=== PATIENT | female | born 1960 | race Caucasian/White ===

== ENCOUNTER 2019-12-06 13:41 | Inpatient (IN) | payer BC, OTHER ==
[~2019-12-06] VITALS: Ht 165.1 cm; Wt 88.0 kg
[2019-12-06] MEDS ORDERED: vancomycin/NS 1 GM ADD-VANTAGE 250 ML IV ONE (13:50)
[2019-12-06 14:28] LABS: BASOPHILS % (AUTO) 0.1 % (0-1); EOSINOPHILS % (AUTO) 0 % (0-6); HEMATOCRIT 29.3 % (35.0-45.0); HEMOGLOBIN 9.8 g/dl (12.0-16.0); LYMPHOCYTES # (AUTO) 0.5 X10'3 (1.1-4.8); LYMPHOCYTES % (AUTO) 3.7 % (21-51); MEAN CORPUSCULAR HEMOGLOBIN 29.2 PG (27.0-31.0); MEAN CORPUSCULAR HGB CONC 33.4 g/dL (33.0-36.5); MEAN CORPUSCULAR VOLUME 87.4 FL (78-98); MEAN PLATELET VOLUME 8.2 FL (7.4-10.4); MONOCYTES # (AUTO) 0.7 X10'3 (0-0.9); MONOCYTES % (AUTO) 5.2 % (2-12); NEUTROPHILS # (AUTO) 11.7 X10'3 (1.8-7.7); PARTIAL THROMBOPLASTIN TIME 31 SECONDS (22-32); PLATELET COUNT 125 X10'3 (140-440); RED BLOOD COUNT 3.36 X10'6 (4.20-5.60); RED CELL DISTRIBUTION WIDTH 14.6 % (11.5-14.5); WHITE BLOOD COUNT 12.8 X10'3 (4.5-11.0)
[2019-12-06 14:31] LABS: ALANINE AMINOTRANSFERASE 39 U/L (12-78); ALBUMIN 2.2 G/DL (3.4-5.0); ALBUMIN/GLOBULIN RATIO 0.5 (1.1-1.5); ALKALINE PHOSPHATASE 386 IU/L (46-116); ANION GAP 10 (8-16); ASPARTATE AMINO TRANSFERASE 42 U/L (10-37); BLOOD UREA NITROGEN 18 MG/DL (7-18); BUN/CREATININE RATIO 14.1 (6.6-38.0); CALCIUM 7.8 MG/DL (8.5-10.1); CHLORIDE 100 MMOL/L (99-107); CREATININE 1.28 MG/DL (0.40-0.90); GLUCOSE 138 MG/DL (70-104); MAGNESIUM 1.9 MG/DL (1.5-2.4); POTASSIUM 4.4 MMOL/L (3.5-5.1); SODIUM 130 MMOL/L (135-145); TOTAL CARBON DIOXIDE 19.8 MMOL/L (24-32); TOTAL PROTEIN 6.5 G/DL (6.4-8.2); eGFR 43 ML/MIN
[2019-12-06] MEDS ORDERED: ondansetron/PF 4mg/2ml inj IV ONE (14:45)
[2019-12-06] MEDS ORDERED: morphine 2 MG/ML inj. syringe IV ONE (14:45)
[2019-12-06] MEDS ORDERED: potassium Cl 20 mEq SR tablet PO PRN ×2 (14:50)
[2019-12-06] MEDS ORDERED: acetaminophen 325mg tablet PO PRN ×2 (14:50)
[2019-12-06] MEDS ORDERED: docusate sod 100mg capsule PO PRN (14:50)
[2019-12-06] MEDS ORDERED: magnesium 4gm in 100ml NS 100 ML IV PRN (14:50)
[2019-12-06] MEDS ORDERED: potassium CL 10mEq/100ml bag 100 ML IV PRN ×2 (14:50)
[2019-12-06] MEDS ORDERED: metoclopramide 5 mg/ml inj IV PRN (14:50)
[2019-12-06] MEDS ORDERED: magnesium Cl slow-release 64mg tablet PO PRN (14:50)
[2019-12-06] MEDS ORDERED: magnesium 2GM in 50ml NS 50 ML IV PRN (14:50)
[2019-12-06 15:03] LABS: CLARITY,URINE SLIGHTLY CLOUDY (Clear); COLOR,URINE AMBER (Yellow); GLUCOSE, URINE NEGATIVE (Neg); KETONES,URINE NEGATIVE (Neg); LEUKOCYTE ESTERASE ,URINE TRACE (Neg); NITRITES, URINE NEGATIVE (Neg); OCCULT BLOOD,URINE LARGE (Neg); PROTEIN,URINE NEGATIVE (Neg)
[2019-12-06 15:04] LABS: UA COLLECTION TYPE FOLEY CATH
[2019-12-06] MEDS ORDERED: LIDOcaine 1% W/epiNEPHrine 1:100,000 20ml vial SQ ONE (15:10)
[2019-12-06 15:21] LABS: SQUAMOUS EPITHELIAL CELL,UR MODERATE /LPF (FEW)
[2019-12-06 15:28] LABS: TRANSITIONAL EPI CELLS,URINE FEW /HPF
[2019-12-06 15:33] LABS: BACTERIA,URINE FEW /HPF (Neg); CAL OXALATE CRYSTALS FEW /HPF (NEGATIVE); RENAL CELLS, URINE FEW /HPF
[2019-12-06] MEDS ORDERED: albumin (human) 25% 100 ML IV solution IV ONE (15:55)
[2019-12-06 16:32] LABS: ALBUMIN,BODY FLUID < 0.6 G/DL; LDH,BODY FLUID 59 U/L
[2019-12-06 16:45] LABS: TOTAL PROTEIN,BODY FLUID < 2.0 G/DL
[2019-12-06 17:11] LABS: BF RBC COUNT 825 /CU MM; BF WBC COUNT 2175 /CU MM (0-1000); BFAPPEAR HAZY; BFCOLOR YELLOW; BFVOLUME 19 ML
[2019-12-06 17:22] LABS: LYMPHOCYTES,BODY FLUID 5 %; MONOCYTES,BODY FLUID 5 %; NEUTROPHILS,BODY FLUID 90 %
--- NOTE | 2019-12-06 17:37 | NUR ---
visitor documentation obtained by NS
[2019-12-06 18:00] VITALS: BP 94/54
[2019-12-06] MEDS ORDERED: FERR-39 PO (18:57)
[2019-12-06] MEDS ORDERED: SPIR100T5 PO (18:57)
[2019-12-06] MEDS ORDERED: URSO300C2 PO (18:57)
[2019-12-06] MEDS ORDERED: BUME1TAB8 PO (18:57)
[2019-12-06] MEDS ORDERED: metroNIDAZOLE-Flagyl 500mg/NS 100 ML IV SCH (20:00)
[2019-12-06] MEDS: K and/or MAG REPLACEMENT MC SCH (20:00)
[2019-12-06] MEDS: ciprofloxacin lact 400MG/200ML 200 ML IV SCH (21:01)
[2019-12-06] MEDS: Ursodiol 300mg capsule PO SCH (21:01)
--- NOTE | 2019-12-06 21:55 | NUR ---
Page sent " [address]B [facility]. admit 12/05 [facility]. Pt is requesting a diet. Josie RN Surg [id number]"
[2019-12-07] VITALS: BP 101/54
[2019-12-07 04:54] LABS: BASOPHILS % (AUTO) 0.2 % (0-1); EOSINOPHILS % (AUTO) 0.5 % (0-6); HEMATOCRIT 25.6 % (35.0-45.0); HEMOGLOBIN 8.6 g/dl (12.0-16.0); LYMPHOCYTES # (AUTO) 0.5 X10'3 (1.1-4.8); LYMPHOCYTES % (AUTO) 4.8 % (21-51); MEAN CORPUSCULAR HEMOGLOBIN 29.1 PG (27.0-31.0); MEAN CORPUSCULAR HGB CONC 33.5 g/dL (33.0-36.5); MEAN CORPUSCULAR VOLUME 86.8 FL (78-98); MEAN PLATELET VOLUME 8.3 FL (7.4-10.4); MONOCYTES # (AUTO) 0.8 X10'3 (0-0.9); MONOCYTES % (AUTO) 8.4 % (2-12); NEUTROPHILS # (AUTO) 8.6 X10'3 (1.8-7.7); NEUTROPHILS % (AUTO) 86.1 % (42-75); PLATELET COUNT 121 X10'3 (140-440); RED BLOOD COUNT 2.95 X10'6 (4.20-5.60); RED CELL DISTRIBUTION WIDTH 14.7 % (11.5-14.5)
[2019-12-07 05:08] LABS: ALANINE AMINOTRANSFERASE 33 U/L (12-78); ALBUMIN 2.2 G/DL (3.4-5.0); ALBUMIN/GLOBULIN RATIO 0.6 (1.1-1.5); ALKALINE PHOSPHATASE 296 IU/L (46-116); ANION GAP 9 (8-16); ASPARTATE AMINO TRANSFERASE 33 U/L (10-37); BLOOD UREA NITROGEN 23 MG/DL (7-18); BUN/CREATININE RATIO 20.4 (6.6-38.0); CALCIUM 7.8 MG/DL (8.5-10.1); CHLORIDE 102 MMOL/L (99-107); CREATININE 1.13 MG/DL (0.40-0.90); GLUCOSE 86 MG/DL (70-104); MAGNESIUM 2.1 MG/DL (1.5-2.4); POTASSIUM 4.5 MMOL/L (3.5-5.1); SODIUM 130 MMOL/L (135-145); TOTAL CARBON DIOXIDE 19.2 MMOL/L (24-32); TOTAL PROTEIN 5.7 G/DL (6.4-8.2); eGFR 49 ML/MIN
--- NOTE | 2019-12-07 06:45 | NUR ---
Problems reprioritized. Patient report given, questions answered & plan of care reviewed with Ibeth LECHUGA.
--- NOTE | 2019-12-07 06:52 | NUR ---
Patient in room [facility] 346 B. I have received report from ALEXANDREA PATEL and had the opportunity to ask questions and assume patient care.
[2019-12-07 07:00] VITALS: BP 92/57
[2019-12-07] MEDS: K and/or MAG REPLACEMENT MC SCH ×2 (08:00→20:00)
[2019-12-07] MEDS: bumetanide 1mg tablet PO SCH ×2 (08:00→20:00)
[2019-12-07] MEDS: Ursodiol 300mg capsule PO SCH ×3 (08:45→20:48)
[2019-12-07] MEDS: spironolactone 25 MG tablet PO SCH (08:45)
[2019-12-07] MEDS: ciprofloxacin lact 400MG/200ML 200 ML IV SCH (08:50)
[2019-12-07] MEDS ORDERED: CefTRIAXone 2gm/D5W 50ml 50 ML IV SCH (10:00)
[2019-12-07 11:00] VITALS: BP 100/59
[2019-12-07] MEDS: albumin (human) 25% 100 ML IV solution IV SCH (12:16)
--- NOTE | 2019-12-07 18:15 | NUR ---
Patient in room [facility] 346. I have received report from Ibeth LECHUGA and had the opportunity to ask questions and assume patient care.
--- NOTE | 2019-12-07 19:00 | NUR ---
Problems reprioritized. Patient report given, questions answered & plan of care reviewed with PRUDENCEALEXANDREA. Addendum: 12/07/19 at 1903 by Ibeth Pringle RN WITH HARDY NEUMANN
[2019-12-07] MEDS: morphine 2 MG/ML inj. syringe IV PRN (19:09)
[2019-12-07 20:00] VITALS: BP 107/48
[2019-12-07] MEDS: CefTRIAXone 2gm/D5W 50ml 50 ML IV SCH (20:38)
[2019-12-07] MEDS: lactobacillus rhamnosus 10,000 MMU CELLS/CAPSULE PO SCH (20:39)
[2019-12-08] VITALS: BP 90/47
[2019-12-08 05:25] LABS: BASOPHILS % (AUTO) 0.3 % (0-1); EOSINOPHILS % (AUTO) 0.3 % (0-6); HEMATOCRIT 25.9 % (35.0-45.0); HEMOGLOBIN 8.8 g/dl (12.0-16.0); LYMPHOCYTES # (AUTO) 0.5 X10'3 (1.1-4.8); LYMPHOCYTES % (AUTO) 5.1 % (21-51); MEAN CORPUSCULAR HEMOGLOBIN 29.2 PG (27.0-31.0); MEAN CORPUSCULAR HGB CONC 33.9 g/dL (33.0-36.5); MEAN CORPUSCULAR VOLUME 86.2 FL (78-98); MEAN PLATELET VOLUME 8.2 FL (7.4-10.4); MONOCYTES # (AUTO) 0.8 X10'3 (0-0.9); MONOCYTES % (AUTO) 8.9 % (2-12); NEUTROPHILS # (AUTO) 7.8 X10'3 (1.8-7.7); NEUTROPHILS % (AUTO) 85.4 % (42-75); PLATELET COUNT 132 X10'3 (140-440); RED BLOOD COUNT 3.01 X10'6 (4.20-5.60); RED CELL DISTRIBUTION WIDTH 14.8 % (11.5-14.5); WHITE BLOOD COUNT 9.2 X10'3 (4.5-11.0)
[2019-12-08 05:43] LABS: ALANINE AMINOTRANSFERASE 29 U/L (12-78); ALBUMIN 2.4 G/DL (3.4-5.0); ALBUMIN/GLOBULIN RATIO 0.7 (1.1-1.5); ALKALINE PHOSPHATASE 270 IU/L (46-116); ANION GAP 10 (8-16); ASPARTATE AMINO TRANSFERASE 30 U/L (10-37); BILIRUBIN,TOTAL 1.9 MG/DL (0.1-1.0); BLOOD UREA NITROGEN 28 MG/DL (7-18); BUN/CREATININE RATIO 21.7 (6.6-38.0); CALCIUM 7.9 MG/DL (8.5-10.1); CHLORIDE 98 MMOL/L (99-107); CREATININE 1.29 MG/DL (0.40-0.90); GLUCOSE 107 MG/DL (70-104); MAGNESIUM 2.1 MG/DL (1.5-2.4); POTASSIUM 5.2 MMOL/L (3.5-5.1); SODIUM 128 MMOL/L (135-145); TOTAL CARBON DIOXIDE 20.3 MMOL/L (24-32); TOTAL PROTEIN 5.8 G/DL (6.4-8.2); eGFR 42 ML/MIN
--- NOTE | 2019-12-08 06:21 | NUR ---
Problems reprioritized. Patient report given, questions answered & plan of care reviewed with Deniz LECHUGA.
--- NOTE | 2019-12-08 06:40 | NUR ---
Patient in room [facility] 346. I have received report from ALEXANDREA Piña and had the opportunity to ask questions and assume patient care. Patient transferred to room 344B.
[2019-12-08 07:00] VITALS: BP 105/71
[2019-12-08] MEDS: bumetanide 1mg tablet PO SCH ×3 (07:16→20:00)
[2019-12-08] MEDS: albumin (human) 25% 100 ML IV solution IV SCH (07:34)
[2019-12-08] MEDS: morphine 2 MG/ML inj. syringe IV PRN ×2 (07:37→15:59)
[2019-12-08] MEDS: Ursodiol 300mg capsule PO SCH ×3 (07:37→22:11)
[2019-12-08] MEDS: spironolactone 25 MG tablet PO SCH (07:37)
[2019-12-08] MEDS: lactobacillus rhamnosus 10,000 MMU CELLS/CAPSULE PO SCH ×2 (07:37→19:43)
[2019-12-08] MEDS: K and/or MAG REPLACEMENT MC SCH ×2 (08:00→20:00)
[2019-12-08] MEDS: CefTRIAXone 2gm/D5W 50ml 50 ML IV SCH ×2 (08:29→19:43)
--- NOTE | 2019-12-08 08:54 | NUR ---
DR THEODORE IN TO SEE PATIENT. DR GIANG AWARE PATIENT BUMEX WAS HELD DUE TO BP PARAMETERS. PATIENT'S BP WAS 95/48. DR THEODORE WOULD LIKE FOR BUMEX BP PARAMETER TO BE CHANGED TO BE HELD IF SBP IS BELOW 90. WILL ADMINISTER ORDERED.
--- NOTE | 2019-12-08 10:05 | NUR ---
Patient rodrigues removed bedside, cath intact, patient tolerated well.
[2019-12-08 12:32] VITALS: BP 106/55
--- NOTE | 2019-12-08 14:54 | NUR ---
Notified by Katie FENTON that she is unable to get a walker for patient and [facility] Relayed information to patient.
[2019-12-08] MEDS: ondansetron/PF 4mg/2ml inj IV PRN (16:00)
--- NOTE | 2019-12-08 18:07 | NUR ---
Problems reprioritized. Patient report given, questions answered & plan of care reviewed with ALEXANDREA Bo.
[2019-12-08 20:00] VITALS: BP 87/43
[2019-12-09] VITALS: BP 88/47
[2019-12-09 05:10] LABS: BASOPHILS % (AUTO) 0.5 % (0-1); EOSINOPHILS # (AUTO) 0.1 X10'3 (0-0.9); HEMATOCRIT 25.5 % (35.0-45.0); HEMOGLOBIN 8.6 g/dl (12.0-16.0); LYMPHOCYTES # (AUTO) 0.5 X10'3 (1.1-4.8); LYMPHOCYTES % (AUTO) 5.7 % (21-51); MEAN CORPUSCULAR HGB CONC 33.7 g/dL (33.0-36.5); MEAN CORPUSCULAR VOLUME 85.9 FL (78-98); MEAN PLATELET VOLUME 8.4 FL (7.4-10.4); MONOCYTES % (AUTO) 12.2 % (2-12); NEUTROPHILS # (AUTO) 6.5 X10'3 (1.8-7.7); NEUTROPHILS % (AUTO) 80.6 % (42-75); PLATELET COUNT 134 X10'3 (140-440); RED BLOOD COUNT 2.97 X10'6 (4.20-5.60); RED CELL DISTRIBUTION WIDTH 14.7 % (11.5-14.5); WHITE BLOOD COUNT 8.1 X10'3 (4.5-11.0)
[2019-12-09 05:11] LABS: ALANINE AMINOTRANSFERASE 24 U/L (12-78); ALBUMIN 2.5 G/DL (3.4-5.0); ALBUMIN/GLOBULIN RATIO 0.8 (1.1-1.5); ALKALINE PHOSPHATASE 243 IU/L (46-116); ANION GAP 8 (8-16); ASPARTATE AMINO TRANSFERASE 33 U/L (10-37); BILIRUBIN,TOTAL 2.2 MG/DL (0.1-1.0); BLOOD UREA NITROGEN 26 MG/DL (7-18); BUN/CREATININE RATIO 18.6 (6.6-38.0); CHLORIDE 99 MMOL/L (99-107); GLUCOSE 102 MG/DL (70-104); MAGNESIUM 2.1 MG/DL (1.5-2.4); POTASSIUM 4.9 MMOL/L (3.5-5.1); SODIUM 128 MMOL/L (135-145); TOTAL CARBON DIOXIDE 20.8 MMOL/L (24-32); TOTAL PROTEIN 5.8 G/DL (6.4-8.2); eGFR 38 ML/MIN
[2019-12-09 07:00] VITALS: BP 97/53
[2019-12-09] MEDS: lactobacillus rhamnosus 10,000 MMU CELLS/CAPSULE PO SCH ×2 (07:31→20:04)
[2019-12-09] MEDS: Ursodiol 300mg capsule PO SCH ×3 (07:31→21:11)
[2019-12-09] MEDS: CefTRIAXone 2gm/D5W 50ml 50 ML IV SCH ×2 (07:31→20:04)
[2019-12-09] MEDS: bumetanide 1mg tablet PO SCH ×2 (07:31→20:04)
[2019-12-09] MEDS: spironolactone 25 MG tablet PO SCH (07:31)
[2019-12-09] MEDS: K and/or MAG REPLACEMENT MC SCH ×2 (08:00→20:02)
[2019-12-09] MEDS: albumin (human) 25% 100 ML IV solution IV SCH (08:39)
[2019-12-09 11:00] VITALS: BP 101/46
[2019-12-09] MEDS: HYDROcodone/acetaminophen 5mg/325mg tablet PO PRN (17:13)
--- NOTE | 2019-12-09 18:08 | NUR ---
Received report from primary care nurse Jasmina RN. Assumed patient care. Patient is awake and alert on room air. In no apparent distress eating her dinner. Call light and items of frequent use within reach. Will continue to monitor for changes.
--- NOTE | 2019-12-09 18:36 | NUR ---
Problems reprioritized. Patient report given, questions answered & plan of care reviewed with ALEXANDREA George.
[2019-12-09 19:00] VITALS: BP 98/47
[2019-12-10] VITALS: BP 104/52
[2019-12-10] MEDS: ondansetron/PF 4mg/2ml inj IV PRN ×2 (01:41→21:02)
[2019-12-10] MEDS: HYDROcodone/acetaminophen 5mg/325mg tablet PO PRN ×3 (01:42→21:06)
[2019-12-10 05:16] LABS: BASOPHILS % (AUTO) 0.4 % (0-1); EOSINOPHILS # (AUTO) 0.2 X10'3 (0-0.9); EOSINOPHILS % (AUTO) 2.1 % (0-6); HEMATOCRIT 25.2 % (35.0-45.0); HEMOGLOBIN 8.5 g/dl (12.0-16.0); LYMPHOCYTES # (AUTO) 0.5 X10'3 (1.1-4.8); LYMPHOCYTES % (AUTO) 6.3 % (21-51); MEAN CORPUSCULAR HEMOGLOBIN 29.2 PG (27.0-31.0); MEAN CORPUSCULAR HGB CONC 33.7 g/dL (33.0-36.5); MEAN CORPUSCULAR VOLUME 86.5 FL (78-98); MONOCYTES # (AUTO) 1.1 X10'3 (0-0.9); MONOCYTES % (AUTO) 14.6 % (2-12); NEUTROPHILS # (AUTO) 5.9 X10'3 (1.8-7.7); NEUTROPHILS % (AUTO) 76.6 % (42-75); PLATELET COUNT 126 X10'3 (140-440); RED BLOOD COUNT 2.91 X10'6 (4.20-5.60); RED CELL DISTRIBUTION WIDTH 14.7 % (11.5-14.5); WHITE BLOOD COUNT 7.7 X10'3 (4.5-11.0)
[2019-12-10 05:26] LABS: ALANINE AMINOTRANSFERASE 21 U/L (12-78); ALBUMIN 2.4 G/DL (3.4-5.0); ALBUMIN/GLOBULIN RATIO 0.7 (1.1-1.5); ALKALINE PHOSPHATASE 235 IU/L (46-116); ANION GAP 9 (8-16); ASPARTATE AMINO TRANSFERASE 32 U/L (10-37); BILIRUBIN,TOTAL 2.3 MG/DL (0.1-1.0); BLOOD UREA NITROGEN 25 MG/DL (7-18); BUN/CREATININE RATIO 20.2 (6.6-38.0); CALCIUM 8.1 MG/DL (8.5-10.1); CHLORIDE 99 MMOL/L (99-107); CREATININE 1.24 MG/DL (0.40-0.90); GLUCOSE 90 MG/DL (70-104); POTASSIUM 4.4 MMOL/L (3.5-5.1); SODIUM 129 MMOL/L (135-145); TOTAL CARBON DIOXIDE 20.7 MMOL/L (24-32); TOTAL PROTEIN 5.8 G/DL (6.4-8.2); eGFR 44 ML/MIN
--- NOTE | 2019-12-10 06:33 | NUR ---
Reported off to Jasmina RN. Patient is awake and alert on room air. In no apparent distress. Call light and items of frequent use within reach.
[2019-12-10 07:00] VITALS: BP 94/53
[2019-12-10] MEDS: K and/or MAG REPLACEMENT MC SCH ×2 (08:00→20:00)
[2019-12-10] MEDS: Ursodiol 300mg capsule PO SCH ×3 (08:09→21:12)
[2019-12-10] MEDS: bumetanide 1mg tablet PO SCH ×2 (08:09→20:00)
[2019-12-10] MEDS: CefTRIAXone 2gm/D5W 50ml 50 ML IV SCH ×2 (08:09→21:10)
[2019-12-10] MEDS: spironolactone 25 MG tablet PO SCH (08:09)
[2019-12-10] MEDS: lactobacillus rhamnosus 10,000 MMU CELLS/CAPSULE PO SCH ×2 (08:09→21:12)
[2019-12-10] MEDS: albumin (human) 25% 100 ML IV solution IV SCH (09:13)
[2019-12-10 11:53] VITALS: BP 106/52
[2019-12-10 14:39] VITALS: BP 97/49
[2019-12-10] MEDS ORDERED: albumin (human) 25% 100ml IV 100 ML IV ONE (14:47)
[2019-12-10] MEDS ORDERED: albumin (human) 25% 100 ML IV solution IV ONE (15:15)
[2019-12-10 15:18] VITALS: BP 106/50
--- NOTE | 2019-12-10 18:55 | NUR ---
Patient in room [facility] 349. I have received report from Jasmina LECHUGA and had the opportunity to ask questions and assume patient care.
[2019-12-10 20:00] VITALS: BP 101/43
--- NOTE | 2019-12-10 21:00 | NUR ---
pt refused bumex medication tonight. She stated she "did not want to be up peeing all night." I educated pt on purpose of the medication and patient still refused the medication
[2019-12-11] VITALS: BP 93/47
[2019-12-11 05:08] LABS: BASOPHILS % (AUTO) 0.4 % (0-1); EOSINOPHILS # (AUTO) 0.2 X10'3 (0-0.9); EOSINOPHILS % (AUTO) 2.6 % (0-6); HEMATOCRIT 24.2 % (35.0-45.0); HEMOGLOBIN 8.1 g/dl (12.0-16.0); LYMPHOCYTES # (AUTO) 0.4 X10'3 (1.1-4.8); LYMPHOCYTES % (AUTO) 5.7 % (21-51); MEAN CORPUSCULAR HEMOGLOBIN 28.7 PG (27.0-31.0); MEAN CORPUSCULAR HGB CONC 33.4 g/dL (33.0-36.5); MEAN CORPUSCULAR VOLUME 85.8 FL (78-98); MEAN PLATELET VOLUME 8.1 FL (7.4-10.4); MONOCYTES # (AUTO) 0.8 X10'3 (0-0.9); MONOCYTES % (AUTO) 13.2 % (2-12); NEUTROPHILS # (AUTO) 4.8 X10'3 (1.8-7.7); NEUTROPHILS % (AUTO) 78.1 % (42-75); PLATELET COUNT 105 X10'3 (140-440); RED BLOOD COUNT 2.82 X10'6 (4.20-5.60); RED CELL DISTRIBUTION WIDTH 14.7 % (11.5-14.5); WHITE BLOOD COUNT 6.1 X10'3 (4.5-11.0)
[2019-12-11 05:14] LABS: ALANINE AMINOTRANSFERASE 20 U/L (12-78); ALBUMIN 2.7 G/DL (3.4-5.0); ALKALINE PHOSPHATASE 184 IU/L (46-116); ANION GAP 7 (8-16); ASPARTATE AMINO TRANSFERASE 22 U/L (10-37); BILIRUBIN,TOTAL 2.5 MG/DL (0.1-1.0); BLOOD UREA NITROGEN 24 MG/DL (7-18); BUN/CREATININE RATIO 19.4 (6.6-38.0); CALCIUM 7.9 MG/DL (8.5-10.1); CHLORIDE 99 MMOL/L (99-107); CREATININE 1.24 MG/DL (0.40-0.90); GLUCOSE 98 MG/DL (70-104); POTASSIUM 4.3 MMOL/L (3.5-5.1); SODIUM 129 MMOL/L (135-145); TOTAL CARBON DIOXIDE 23.2 MMOL/L (24-32); TOTAL PROTEIN 5.3 G/DL (6.4-8.2); eGFR 44 ML/MIN
--- NOTE | 2019-12-11 06:33 | NUR ---
Patient in room [facility] 354. I have received report from ALEXANDREA Soto and had the opportunity to ask questions and assume patient care.
--- NOTE | 2019-12-11 06:34 | NUR ---
Problems reprioritized. Patient report given, questions answered & plan of care reviewed with Maty LECHUGA.
[2019-12-11] MEDS: CefTRIAXone 2gm/D5W 50ml 50 ML IV SCH (07:39)
[2019-12-11] MEDS: bumetanide 1mg tablet PO SCH (07:44)
[2019-12-11] MEDS: lactobacillus rhamnosus 10,000 MMU CELLS/CAPSULE PO SCH (07:44)
[2019-12-11] MEDS: spironolactone 25 MG tablet PO SCH (07:44)
[2019-12-11] MEDS: Ursodiol 300mg capsule PO SCH (07:44)
[2019-12-11] MEDS ORDERED: LEVO500T2 PO (07:53)
[2019-12-11] MEDS ORDERED: HYDR-4383 PO (07:53)
[2019-12-11] MEDS ORDERED: LACT10SO PO (07:53)
[2019-12-11 08:00] VITALS: BP 118/58
[2019-12-11] MEDS ORDERED: lactulose 20gm/30ml cup PO SCH (08:00)
[2019-12-11] MEDS: K and/or MAG REPLACEMENT MC SCH (08:00)
[2019-12-11 11:52] VITALS: BP 102/46
--- NOTE | 2019-12-11 13:43 | NUR ---
Pt D/C'd home per Dr Gallo in stable condition. Discharge and medication orders given to pt. IV removed with cannula intact. Pt was escorted to main lobby on W/C. Left the hospital via private vehicle accompanied by family member.
== END 2019-12-11 12:52 | disposition home health service (06) | DRG 372 ==
LOC: ER 13:41 → ED HOLD 14:48 → UNDOADMIN 14:48 → ED HOLD 15:48 → SUR 3N 19:12 → ED HOLD 19:12 → SUR 3N 12-08 08:26
PROVIDERS: ADMIT Internal Medicine; ATTEND Internal Medicine
PROC: 0W9G3ZZ Drainage of Peritoneal Cavity, Percutaneous Approach (ICD-10-PCS; 2019-12-06)
PROC: 0W9G3ZZ Drainage of Peritoneal Cavity, Percutaneous Approach (ICD-10-PCS; principal; 2019-12-10)
DX: K65.2 Spontaneous bacterial peritonitis (principal); E87.1 Hypo-osmolality and hyponatremia; N17.9 Acute kidney failure, unspecified; R18.8 Other ascites; D63.8 Anemia in other chronic diseases classified elsewhere; D69.59 Other secondary thrombocytopenia; K42.9 Umbilical hernia without obstruction or gangrene; K74.60 Unspecified cirrhosis of liver; N18.3 Chronic kidney disease, stage 3 (moderate); E88.09 Other disorders of plasma-protein metabolism, not elsewhere classified; K72.90 Hepatic failure, unspecified without coma; Z79.899 Other long term (current) drug therapy
CPT/HCPCS: 36415; 49083; 71045; 80053; 81001; 82042; 83605; 83615; 83735; 84145; 84157; 85025; 85610; 85730; 87040; 87070; 87081; 87088; 89051; 93005; 97110; 97116; 97161; 97530; 99285; G0378; J0696; J0744; J2270; J2405; J2765; J3370; J3490; P9047

== ENCOUNTER 2020-03-30 23:00 | Inpatient (IN) | payer BC, OTHER ==
[~2020-03-30] VITALS: Ht 165.1 cm; Wt 86.4 kg
[~2020-03-30 23:00] MED LIST: BUME1TAB8 PO; FERR-39 PO; HYDR-4383 PO; LACT10SO PO; SPIR100T5 PO; URSO300C2 PO
--- NOTE | 2020-03-30 23:29 | NUR ---
CALL PLACED TO ID MD MARIA REQUSETING APPROVAL FOR RAPID COVID TEST - MSG LEFT ASKING FOR A RETURN CALL
--- NOTE | 2020-03-30 23:30 | NUR ---
APPROVAL WAS GRANTED - SWAB WILL BE COLLECTED
[2020-03-30] MEDS ORDERED: normal saline 1000ML IV soln IVB ONE (23:40)
[2020-03-30] MEDS ORDERED: amiodarone 150mg/dext, iso-os 100 ML IV ONE (23:45)
[2020-03-31] MEDS ORDERED: URSO300C2 PO (00:08)
[2020-03-31] MEDS ORDERED: CIPR-260 PO (00:08)
--- NOTE | 2020-03-31 00:08 | NUR ---
PT GIVEN WATER AND JELLO PER REQUEST
--- NOTE | 2020-03-31 00:56 | NUR ---
NEGATIVE COVID RESULT
[2020-03-31] MEDS ORDERED: mag hydrox/Alum hydrox/simeth 30ml oral suspension PO PRN (01:20)
[2020-03-31] MEDS ORDERED: potassium CL 10mEq/100ml bag 100 ML IV PRN ×2 (01:20)
[2020-03-31] MEDS ORDERED: magnesium hydroxide 30ml (MOM) UD suspension PO PRN (01:20)
[2020-03-31] MEDS ORDERED: HYDROcodone/acetaminophen 5mg/325mg tablet PO PRN (01:20)
[2020-03-31] MEDS ORDERED: magnesium 2GM in 50ml NS 50 ML IV PRN (01:20)
[2020-03-31] MEDS ORDERED: ondansetron/PF 4mg/2ml inj IV PRN (01:20)
[2020-03-31] MEDS ORDERED: potassium Cl 20 mEq SR tablet PO PRN ×2 (01:20)
[2020-03-31] MEDS ORDERED: magnesium Cl slow-release 64mg tablet PO PRN (01:20)
[2020-03-31] MEDS ORDERED: acetaminophen 325mg tablet PO PRN (01:20)
[2020-03-31] MEDS ORDERED: magnesium 4gm in 100ml NS 100 ML IV PRN (01:20)
[2020-03-31] MEDS: diltiazem-NS 100mg/100ml 100 ML IV SCH ×2 (01:39→16:53)
[2020-03-31 03:00] VITALS: BP 114/58
[2020-03-31 06:00] VITALS: BP 112/45
--- NOTE | 2020-03-31 06:30 | NUR ---
Patient in room PCU 3025. I have received report from ALEXANDREA Quesada and had the opportunity to ask questions and assume patient care.
--- NOTE | 2020-03-31 07:40 | NUR ---
Patient in room U 3025. I have received report from ALEXANDREA Galindo and had the opportunity to ask questions and assume patient care. Pt sitting up in bed, eating breakfast independently.
--- NOTE | 2020-03-31 07:45 | NUR ---
Problems reprioritized. Patient report given, questions answered & plan of care reviewed with ALEXANDREA Jean.
[2020-03-31] MEDS: Ursodiol 300mg capsule PO SCH (07:54)
[2020-03-31] MEDS: spironolactone 25 MG tablet PO SCH (07:54)
[2020-03-31] MEDS: bumetanide 1mg tablet PO SCH ×2 (07:56→20:49)
[2020-03-31] MEDS: K and/or MAG REPLACEMENT MC SCH ×2 (08:00→20:00)
[2020-03-31 09:33] LABS: BASOPHILS % (AUTO) 0.3 % (0-1); EOSINOPHILS # (AUTO) 0.2 X10'3 (0-0.9); EOSINOPHILS % (AUTO) 2.2 % (0-6); HEMATOCRIT 24.1 % (35.0-45.0); HEMOGLOBIN 8.1 g/dl (12.0-16.0); LYMPHOCYTES # (AUTO) 0.5 X10'3 (1.1-4.8); LYMPHOCYTES % (AUTO) 6.1 % (21-51); MEAN CORPUSCULAR HEMOGLOBIN 28.6 PG (27.0-31.0); MEAN CORPUSCULAR HGB CONC 33.6 g/dL (33.0-36.5); MEAN CORPUSCULAR VOLUME 84.9 FL (78-98); MEAN PLATELET VOLUME 7.6 FL (7.4-10.4); MONOCYTES # (AUTO) 0.8 X10'3 (0-0.9); MONOCYTES % (AUTO) 9.9 % (2-12); NEUTROPHILS # (AUTO) 6.4 X10'3 (1.8-7.7); NEUTROPHILS % (AUTO) 81.5 % (42-75); PLATELET COUNT 123 X10'3 (140-440); RED BLOOD COUNT 2.84 X10'6 (4.20-5.60); WHITE BLOOD COUNT 7.9 X10'3 (4.5-11.0)
[2020-03-31 09:42] LABS: PARTIAL THROMBOPLASTIN TIME 30 SECONDS (22-32)
[2020-03-31 09:55] LABS: ALANINE AMINOTRANSFERASE 19 U/L (12-78); ALBUMIN 1.9 G/DL (3.4-5.0); ALKALINE PHOSPHATASE 253 IU/L (46-116); ANION GAP 6 (8-16); ASPARTATE AMINO TRANSFERASE 34 U/L (10-37); BILIRUBIN,TOTAL 6.7 MG/DL (0.1-1.0); BLOOD UREA NITROGEN 19 MG/DL (7-18); BUN/CREATININE RATIO 21.3 (6.6-38.0); CALCIUM 7.7 MG/DL (8.5-10.1); CHLORIDE 101 MMOL/L (99-107); CREATININE 0.89 MG/DL (0.40-0.90); GLUCOSE 138 MG/DL (70-104); POTASSIUM 3.8 MMOL/L (3.5-5.1); SODIUM 130 MMOL/L (135-145); TOTAL CARBON DIOXIDE 22.7 MMOL/L (24-32); eGFR 65 ML/MIN
[2020-03-31 10:05] LABS: PLATELET ESTIMATE DECREASED
[2020-03-31 10:06] LABS: ANISOCYTOSIS 2+
[2020-03-31] MEDS: CefTRIAXone/D5W-Rocephin 1gm 50 ML IV SCH (10:45)
[2020-03-31] MEDS: azithromycin/NS 500mg/250ml 250 ML IV SCH (10:45)
[2020-03-31 10:47] LABS: ALBUMIN/GLOBULIN RATIO 0.5 (1.1-1.5); TOTAL PROTEIN 5.9 G/DL (6.4-8.2)
[2020-03-31 11:00] VITALS: BP 114/52
--- NOTE | 2020-03-31 14:00 | NUR ---
Paged Dr Contreras PAGER ID: [phone] MESSAGE: Sandra CastillojoseNuha [id number] Pt is on Cardizem gtt and has PO Cardizem scheduled, can you please verify with me that you want both IV and PO. Thank you Miranda Waite [phone]
--- NOTE | 2020-03-31 14:35 | NUR ---
Per Dr Contreras, give pt PO Cardizem, in a couple hours if heart rate and blood pressure are within normal limits, decrease Cardizem gtt to 2.5ml/hr and page Dr Contreras to inform how the pt is tolerating.
[2020-03-31] MEDS: diltiazem 30mg tablet PO SCH ×2 (14:41→20:49)
[2020-03-31 15:00] VITALS: BP 101/45
[2020-03-31] MEDS ORDERED: diltiazem-NS 100mg/100ml 100 ML IV SCH (17:55)
--- NOTE | 2020-03-31 18:17 | NUR ---
Problems reprioritized. Patient report given, questions answered & plan of care reviewed with ALEXANDREA Quesada. Pt eating dinner at change of shift, all pt needs met at this time.
[2020-03-31 19:00] VITALS: BP 110/60
[2020-03-31] MEDS ORDERED: enoxaparin 40mg/0.4ml syringe SQ SCH (20:00)
[2020-03-31] MEDS: lactobacillus rhamnosus 10,000 MMU CELLS/CAPSULE PO SCH (20:49)
[2020-03-31 23:00] VITALS: BP 92/63
[2020-04-01] VITALS (8 sets, daily range): BP systolic 108–131; BP diastolic 43–60
[2020-04-01] MEDS: diltiazem 30mg tablet PO SCH ×4 (02:08→19:31)
[2020-04-01 05:45] LABS: BASOPHILS # (AUTO) 0.1 X10'3 (0-0.2); BASOPHILS % (AUTO) 0.6 % (0-1); EOSINOPHILS # (AUTO) 0.2 X10'3 (0-0.9); EOSINOPHILS % (AUTO) 2.8 % (0-6); HEMATOCRIT 23.6 % (35.0-45.0); HEMOGLOBIN 7.9 g/dl (12.0-16.0); LYMPHOCYTES # (AUTO) 0.5 X10'3 (1.1-4.8); MEAN CORPUSCULAR HEMOGLOBIN 28.6 PG (27.0-31.0); MEAN CORPUSCULAR HGB CONC 33.7 g/dL (33.0-36.5); MEAN CORPUSCULAR VOLUME 85.1 FL (78-98); MONOCYTES # (AUTO) 0.9 X10'3 (0-0.9); MONOCYTES % (AUTO) 10.6 % (2-12); PLATELET COUNT 152 X10'3 (140-440); RED BLOOD COUNT 2.77 X10'6 (4.20-5.60); RED CELL DISTRIBUTION WIDTH 19.6 % (11.5-14.5); WHITE BLOOD COUNT 8.8 X10'3 (4.5-11.0)
[2020-04-01 06:01] LABS: ALANINE AMINOTRANSFERASE 22 U/L (12-78); ALKALINE PHOSPHATASE 244 IU/L (46-116); ANION GAP 11 (8-16); ASPARTATE AMINO TRANSFERASE 33 U/L (10-37); BILIRUBIN,TOTAL 6.3 MG/DL (0.1-1.0); BLOOD UREA NITROGEN 21 MG/DL (7-18); BUN/CREATININE RATIO 23.9 (6.6-38.0); CALCIUM 7.5 MG/DL (8.5-10.1); CHLORIDE 100 MMOL/L (99-107); CREATININE 0.88 MG/DL (0.40-0.90); GLUCOSE 120 MG/DL (70-104); MAGNESIUM 2.1 MG/DL (1.5-2.4); POTASSIUM 4.1 MMOL/L (3.5-5.1); SODIUM 130 MMOL/L (135-145); TOTAL CARBON DIOXIDE 19.4 MMOL/L (24-32); eGFR 66 ML/MIN
[2020-04-01 06:05] LABS: ALBUMIN/GLOBULIN RATIO 0.5 (1.1-1.5); TOTAL PROTEIN 6.1 G/DL (6.4-8.2)
--- NOTE | 2020-04-01 06:15 | NUR ---
Patient in room PCU 3025. I have received report from ALEXANDREA Quesada and had the opportunity to ask questions and assume patient care. Pt sleeping comfortably at change of shift.
[2020-04-01] MEDS: CefTRIAXone/D5W-Rocephin 1gm 50 ML IV SCH (07:41)
[2020-04-01] MEDS: azithromycin/NS 500mg/250ml 250 ML IV SCH (07:41)
[2020-04-01] MEDS: bumetanide 1mg tablet PO SCH ×2 (07:41→19:30)
[2020-04-01] MEDS: Ursodiol 300mg capsule PO SCH (07:42)
[2020-04-01] MEDS: lactobacillus rhamnosus 10,000 MMU CELLS/CAPSULE PO SCH ×2 (07:42→19:31)
[2020-04-01] MEDS: spironolactone 25 MG tablet PO SCH (07:44)
[2020-04-01] MEDS: K and/or MAG REPLACEMENT MC SCH ×2 (08:00→20:00)
[2020-04-01 08:03] LABS: ANISOCYTOSIS 2+; PLATELET ESTIMATE NORMAL; POLYCHROMASIA FEW; SCHISTOCYTES FEW
[2020-04-01] MEDS: ipratropium/albuterol 3ml nebule NEB SCH ×2 (15:59→20:51)
[2020-04-01 16:20] LABS: BF RBC COUNT 495 /CU MM; BF WBC COUNT 60 /CU MM (0-1000); BFAPPEAR HAZY; BFCOLOR YELLOW; BFVOLUME 45 ML
[2020-04-01 16:25] LABS: LYMPHOCYTES,BODY FLUID 89 %; MONOCYTES,BODY FLUID 9 %; NEUTROPHILS,BODY FLUID 2 %
[2020-04-01 16:26] LABS: ALBUMIN,BODY FLUID 0.6 G/DL; GLUCOSE,BODY FLUID 130 MG/DL; LDH,BODY FLUID 53 U/L
[2020-04-01 16:44] LABS: TOTAL PROTEIN,BODY FLUID < 2.0 G/DL
--- NOTE | 2020-04-01 18:37 | NUR ---
Problems reprioritized. Patient report given, questions answered & plan of care reviewed with ALEXANDREA Hopkins. Pt sitting up eating dinner independently.
--- NOTE | 2020-04-01 18:41 | NUR ---
Patient in room PCU 3025. I have received report from ALEXANDREA Jean and had the opportunity to ask questions and assume patient care.
[2020-04-02] MEDS: diltiazem 30mg tablet PO SCH ×3 (01:53→14:24)
[2020-04-02 02:09] VITALS: BP 128/82
[2020-04-02] MEDS: ipratropium/albuterol 3ml nebule NEB SCH ×3 (02:35→14:22)
[2020-04-02 05:46] LABS: BASOPHILS % (AUTO) 0.4 % (0-1); EOSINOPHILS # (AUTO) 0.1 X10'3 (0-0.9); EOSINOPHILS % (AUTO) 1.3 % (0-6); HEMATOCRIT 23.9 % (35.0-45.0); HEMOGLOBIN 8.1 g/dl (12.0-16.0); LYMPHOCYTES # (AUTO) 0.5 X10'3 (1.1-4.8); LYMPHOCYTES % (AUTO) 5.8 % (21-51); MEAN CORPUSCULAR HEMOGLOBIN 28.9 PG (27.0-31.0); MEAN CORPUSCULAR HGB CONC 34.1 g/dL (33.0-36.5); MEAN CORPUSCULAR VOLUME 84.6 FL (78-98); MEAN PLATELET VOLUME 7.9 FL (7.4-10.4); MONOCYTES # (AUTO) 0.9 X10'3 (0-0.9); MONOCYTES % (AUTO) 11.4 % (2-12); NEUTROPHILS # (AUTO) 6.5 X10'3 (1.8-7.7); NEUTROPHILS % (AUTO) 81.1 % (42-75); PLATELET COUNT 145 X10'3 (140-440); RED BLOOD COUNT 2.82 X10'6 (4.20-5.60); RED CELL DISTRIBUTION WIDTH 19.2 % (11.5-14.5)
[2020-04-02 05:59] LABS: ALANINE AMINOTRANSFERASE 23 U/L (12-78); ALKALINE PHOSPHATASE 234 IU/L (46-116); ANION GAP 11 (8-16); ASPARTATE AMINO TRANSFERASE 36 U/L (10-37); BILIRUBIN,TOTAL 6.7 MG/DL (0.1-1.0); BLOOD UREA NITROGEN 23 MG/DL (7-18); BUN/CREATININE RATIO 24.7 (6.6-38.0); CALCIUM 7.6 MG/DL (8.5-10.1); CHLORIDE 101 MMOL/L (99-107); CREATININE 0.93 MG/DL (0.40-0.90); GLUCOSE 99 MG/DL (70-104); MAGNESIUM 2.1 MG/DL (1.5-2.4); POTASSIUM 4.2 MMOL/L (3.5-5.1); SODIUM 131 MMOL/L (135-145); TOTAL CARBON DIOXIDE 19.2 MMOL/L (24-32); eGFR 62 ML/MIN
[2020-04-02 06:00] VITALS: BP 106/51
[2020-04-02 06:16] LABS: ALBUMIN/GLOBULIN RATIO 0.5 (1.1-1.5); TOTAL PROTEIN 6.1 G/DL (6.4-8.2)
--- NOTE | 2020-04-02 06:39 | NUR ---
Problems reprioritized. Patient report given, questions answered & plan of care reviewed with ALEXANDREA Gaines.
--- NOTE | 2020-04-02 06:42 | NUR ---
Patient in room PCU 3025. I have received report from Sandeep LECHUGA and had the opportunity to ask questions and assume patient care.
[2020-04-02] MEDS: K and/or MAG REPLACEMENT MC SCH (08:00)
[2020-04-02] MEDS: Ursodiol 300mg capsule PO SCH (09:39)
[2020-04-02] MEDS: lactobacillus rhamnosus 10,000 MMU CELLS/CAPSULE PO SCH (09:39)
[2020-04-02] MEDS: bumetanide 1mg tablet PO SCH (09:39)
[2020-04-02] MEDS: CefTRIAXone/D5W-Rocephin 1gm 50 ML IV SCH (09:39)
[2020-04-02] MEDS: spironolactone 25 MG tablet PO SCH (09:40)
[2020-04-02] MEDS: azithromycin/NS 500mg/250ml 250 ML IV SCH (09:41)
[2020-04-02] MEDS ORDERED: LACT1CAP26 PO (10:20)
[2020-04-02] MEDS ORDERED: CEFD300C3 PO (10:20)
[2020-04-02] MEDS ORDERED: CARSR60C PO (10:20)
[2020-04-02] MEDS ORDERED: ALBU8.5H8 INH (10:20)
[2020-04-02 11:00] VITALS: BP 110/53
[2020-04-02 15:00] VITALS: BP 85/51
--- NOTE | 2020-04-02 16:00 | NUR ---
Pt Dc to home with . Pt verbalizes understanding of all DC orders. pt is A & O and in no apparent distress. 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 Pt has an appointment in [place] for her liver transplant follow up on 04/07. Dr Barrientos' office called and inquired about her health and diagnosis. Pt aware of the conversation and authorized me to give information to Dr Barrientos's office. Pt got assistance packing her personal belongings and was wheeled out to the front where we met her . Pt's educated on her DC orders and advised that her antibiotics were called into [facility] in [place]. aware and explained he is the customer care coordinator and she will be ok.
[2020-04-03] MEDS ORDERED: azithromycin 250mg tablet PO SCH (08:00)
== END 2020-04-02 16:00 | disposition home or self-care (01) | DRG 291 ==
LOC: ER 23:01 → ED HOLD 03-31 01:19 → PCU 3S 03-31 02:00
PROVIDERS: ADMIT Family Medicine; ATTEND Family Medicine
PROC: 0W9G3ZZ Drainage of Peritoneal Cavity, Percutaneous Approach (ICD-10-PCS; principal; 2020-04-01)
DX: I50.31 Acute diastolic (congestive) heart failure (principal); J18.9 Pneumonia, unspecified organism; E87.1 Hypo-osmolality and hyponatremia; R18.8 Other ascites; I48.91 Unspecified atrial fibrillation; D64.9 Anemia, unspecified; K76.9 Liver disease, unspecified; Z79.899 Other long term (current) drug therapy; Z20.828 Contact with and (suspected) exposure to other viral communicable diseases
CPT/HCPCS: 36415; 49083; 71045; 80053; 82042; 82945; 83615; 83735; 84157; 84443; 85008; 85025; 85610; 85730; 87070; 87081; 87635; 89051; 93005; 93306; 93308; 94640; 94760; 96365; 97116; 97161; 97530; 99285; G0378; J0456; J0696; J3490; J7030